=== PATIENT | male | born 1965 | race American Indian/Alaskan Native ===

== ENCOUNTER 2018-08-13 05:10 | Emergency (ER) | payer MEDICARE ==
[2018-08-13] MEDS ORDERED: ATIVAN PO ONE (07:04)
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
[2018-08-13] MEDS ORDERED: WATER FOR INJ (PF) ONE (07:33)
[2018-08-13] MEDS: GEODON IM PRN (07:41)
[2018-08-13 11:10] LABS: Creatine Kinase MB 2.2 ng/mL (0.0-4.0)
[2018-08-13 11:11] LABS: Alanine Aminotransferase 11 units/L (7-56); Albumin 3.9 g/dL (3.9-5); BUN/Creatinine Ratio 28; Blood Urea Nitrogen 25 mg/dL (9-20); Calcium 8.9 mg/dL (8.4-10.2); Hemolysis Index 18
[2018-08-13 11:14] LABS: Bilirubin,Direct < 0.2 mg/dL (0-0.2)
[2018-08-13 12:02] LABS: Basophils # (Auto) 0.1 K/mm3 (0.0-0.1); Basophils % (Auto) 0.6 % (0.0-1.8); Eosinophils # (Auto) 0.1 K/mm3 (0.0-0.4); Eosinophils % (Auto) 1.1 % (0.0-4.3); Hematocrit 39.5 % (35.5-45.6); Hemoglobin 13.7 gm/dl (11.8-15.2); Lymphocytes # (Auto) 2.6 K/mm3 (1.2-5.4); Lymphocytes % (Auto) 30.5 % (13.4-35.0); Mean Corpuscular HGB Conc 35 % (32-34); Mean Corpuscular Volume 83 fl (84-94); Monocytes # (Auto) 0.6 K/mm3 (0.0-0.8); Monocytes % (Auto) 6.7 % (0.0-7.3); Platelet Count 442 K/mm3 (140-440); Red Blood Count 4.75 M/mm3 (3.65-5.03); Red Cell Distribution Width 15.5 % (13.2-15.2)
[2018-08-13] MEDS: GEODON PO SCH ×2 (13:19→21:43)
[2018-08-13 19:03] LABS: Bilirubin,Urine NEG (Negative); Blood,Urine NEG (Negative); Color,Urine Straw (Yellow); Protein,Urine <15 mg/dL mg/dL (Negative); RBC,Urine < 1.0 /HPF (0.0-6.0); Urobilinogen,Urine < 2.0 mg/dL (<2.0)
[2018-08-13 19:11] LABS: Benzodiazepines Screen,Urine PRESUMPTIVE NEGATIVE; Cannabinoid Screen,Urine PRESUMPTIVE NEGATIVE; Cocaine Screen,Urine PRESUMPTIVE NEGATIVE; Methadone Screen,Urine PRESUMPTIVE NEGATIVE; Opiate Screen,Urine PRESUMPTIVE NEGATIVE
[2018-08-13 19:26] LABS: Amphetamine Screen,Urine PRESUMPTIVE NEGATIVE
[2018-08-14] MEDS ORDERED: WATER FOR INJ (PF) ONE (08:04)
[2018-08-14] MEDS: GEODON IM PRN (08:10)
[2018-08-14] MEDS: GEODON PO SCH (11:51)
[2018-08-14] MEDS ORDERED: ATIVAN IM PRN (12:37)
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
[2018-08-15] MEDS ORDERED: HALDOL ONE (01:25)
[2018-08-15] MEDS ORDERED: GEODON IM ONE (01:42)
[2018-08-15] MEDS ORDERED: BENADRYL IM ONE (01:42)
[2018-08-15] MEDS ORDERED: ATIVAN IV ONE (01:43)
[2018-08-15] MEDS ORDERED: BENADRYL ONE (01:43)
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
[2018-08-15] MEDS ORDERED: HALDOL IM ONE (02:43)
[2018-08-15 08:30] VITALS: BP 110/65
[2018-08-15] MEDS ORDERED: WATER FOR INJ (PF) ONE (11:09)
[2018-08-15] MEDS: GEODON PO SCH ×2 (11:13)
[2018-08-15] MEDS: GEODON IM PRN (11:14)
--- NOTE | 2018-08-15 12:35 | Progress Note ---
Subjective - Reason for Consult Consult date: 08/15/18 Reason for consult: Psychiatry Follow-up - Chief Complaint Chief complaint: "Hello" 52 y.o. AA male who presented to the ER for for bizarre behavior. This patient is known to me. Today the patient is calm, but disorganized during the assessment. His answers to questions were not logical. He had to be redirected several times to keep him on topic. Overall, the patient is a poor historian at this time. No gestures of SI/HI's. Mental Status Exam - Vital signs Last Vital Signs Temp 97.8 F 08/15/18 08:29 Pulse 54 L 08/15/18 08:29 Resp 16 08/15/18 08:29 BP 110/65 08/15/18 08:29 Pulse Ox 99 08/15/18 08:29 - Exam Narrative exam: MSE: Appearance: calm Behavior: poor eye contact Speech: pressured speech Mood: "okay" Affect: constricted Thought Process: disorganized, loose associations Thought Content: no gestures of SI/HI's, paranoia, delusional Motor Activity: ambulatory Cognition: A/O x3 Insight: poor Judgment: poor Assessment and Plan Impression: Unspecified Psychosis. Today the patient is calm, but disorganized during the assessment. UDS is negative. Per the staff, the patient maybe legally blind. DDx: Bipolar DO with psychosis, R/O Schizophrenia Recommendation/Plan: Continue 1013 and Geodon 40 mg PO BID for psychosis. Attempted to discuss possible metabolic side effects of Geodon with the patient. Give Geodon PO with food. Dispo: The patient was referred to inpatient psy services. Staffed with Dr Jolly Grove.
== END 2018-08-15 17:11 ==
LOC: ED 05:10 → EEVIPCON 05:10 → ED 08-15 17:11
DX: F23 Brief psychotic disorder (principal); F20.9 Schizophrenia, unspecified
CPT/HCPCS: 36415; 80048; 80076; 80307; 81001; 82550; 82553; 85025; 96372; 96374; 99285; G0480; J1200; J1630; J2060; J3486; 80320

== ENCOUNTER 2018-08-15 12:57 | Inpatient (IN) | payer MEDICARE ==
[2018-08-15] MEDS: GEODON IM PRN (19:30)
[2018-08-15] MEDS ORDERED: WATER FOR INJ Sterile (PF) 10 ML ONE (19:39)
[2018-08-15] MEDS: DESYREL PO SCH (21:44)
[2018-08-15] MEDS: RisperDAL PO SCH (21:44)
[2018-08-16] MEDS ORDERED: ATIVAN PO PRN (01:03)
[2018-08-16] MEDS ORDERED: BENADRYL IM PRN (01:13)
[2018-08-16] MEDS ORDERED: ATIVAN IM PRN (01:15)
[2018-08-16] MEDS ORDERED: WATER FOR INJ Sterile (PF) 10 ML ONE (03:44)
[2018-08-16] MEDS: GEODON IM PRN (04:05)
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
[2018-08-16] MEDS ORDERED: HALDOL IM PRN (08:08)
[2018-08-16] MEDS: RisperDAL PO SCH ×2 (09:17→22:21)
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
[2018-08-16] MEDS: ATIVAN PO PRN (20:37)
[2018-08-16] MEDS: DESYREL PO SCH (22:21)
--- NOTE | 2018-08-17 08:56 | Progress Note ---
Subjective Date of service: 08/17/18 Principal diagnosis: Schizoaffective Disorder Bipolar type Subjective Comment: The patient continues to have grandiose delusions and disorganized thought process He is agitated, hyper-sexual, hyperactive, loud, talkative and disruptive. He is also threatening. He is compliant with medications with no reported or observed side effects. Objective - Criteria for Continued Treatment Criteria for Continued Treatment: Improving Level of Functioning, Understanding Diagnosis and need for Medication, Improving Treatment / Medication Compliance, Confronting Denial of Illness, Stablizing Level of Functioning, Improving Emotional/Socia - Mental Status Mental Status: Oriented x 3 - Objective Observation Participation Level: Moderate Assessment and Plan - Patient Problems (1) Schizoaffective disorder, bipolar type Current Visit: Yes Status: Acute Plan to address problem: Patient will be admitted for inpatient psychiatric evaluation, medication adjustment and close monitoring The patient's behavior, mood, sleep and appetite will be closely monitored. Patient will be enrolled in individual and group therapeutic sessions and encouraged to attend. Patient will be provided with a safe and structured environment. Patient's physical health needs will be addressed by the Hospitalist. Social Assessment will be completed, and the Pedorthist will work with patient and family to ensure a suitable and safe disposition Medication adjustment will be made as clinically indicated. The patient agreed on the treatment plan, understood the risk, benefit, alternative treatment, potential consequence of no treatment, and gave informed consent.
[2018-08-17] MEDS: HABITROL TD SCH (09:05)
[2018-08-17] MEDS: RisperDAL PO SCH ×2 (09:06→22:00)
[2018-08-17] MEDS ORDERED: RisperDAL PO ONE (10:00)
[2018-08-17] MEDS: MELATONIN PO SCH (17:15)
[2018-08-17] MEDS: DESYREL PO PRN (21:35)
[2018-08-18] MEDS: RisperDAL PO SCH ×2 (09:17→22:00)
[2018-08-18] MEDS: HABITROL TD SCH (09:17)
--- NOTE | 2018-08-18 15:19 | Progress Note ---
Subjective Date of service: 08/18/18 Principal diagnosis: Schizoaffective Disorder Bipolar type Subjective Comment: The patient continues to have grandiose delusions and disorganized thought process He is agitated, hyper-sexual, hyperactive, loud, talkative and disruptive. He is also threatening. He is compliant with medications with no reported or observed side effects. Objective - Criteria for Continued Treatment Criteria for Continued Treatment: Improving Level of Functioning, Improving Treatment / Medication Compliance, Confronting Denial of Illness, Stablizing Level of Functioning, Improving Emotional/Socia - Mental Status Mental Status: Oriented x 3 - Objective Observation Participation Level: Moderate Reason(s) For Not Participating: Behaviors Assessment and Plan - Patient Problems (1) Schizoaffective disorder, bipolar type Current Visit: Yes Status: Acute Plan to address problem: Patient will be admitted for inpatient psychiatric evaluation, medication adjustment and close monitoring The patient's behavior, mood, sleep and appetite will be closely monitored. Patient will be enrolled in individual and group therapeutic sessions and encouraged to attend. Patient will be provided with a safe and structured environment. Patient's physical health needs will be addressed by the Hospitalist. Social Assessment will be completed, and the Lap Cutter will work with pa tient and family to ensure a suitable and safe disposition Medication adjustment will be made as clinically indicated. Depakote ER increased to 1000mg qhs. Check Valproic Acid level on 4/16 am The patient agreed on the treatment plan, understood the risk, benefit, alternative treatment, potential consequence of no treatment, and gave informed consent.
[2018-08-18] MEDS: MELATONIN PO SCH (17:34)
[2018-08-19] MEDS: HABITROL TD SCH (10:39)
[2018-08-19] MEDS: RisperDAL PO SCH ×2 (10:39→10:42)
--- NOTE | 2018-08-19 18:09 | Progress Note ---
Subjective Principal diagnosis: Schizoaffective Disorder Bipolar type Subjective Comment: Mr. Garcia is a 52-year-old male with schizoaffective disorder admitted for acute agitation, hallucinations, and prominent delusions. He continues to have very prominent delusions stating that he has been on mission from his ancestors and that he is not asked her not and had to go to [employer] to do work. He continues to have grandiosity and states that he has a "[employer]." He also continues to be hypersexual and masturbates frequently in his room. Mr. Garcia states that his sleep was good he states that he is doing okay with his medications, but nursing states that he did not take his a.m. dose of Risperdal. He reports he was irritated at the time, but agreeable to taking 4 mg of Risperdal by mouth daily at bedtime. He denies side effects. He denies SI and HI. He reports sleep is good per unit staff Mr. Garcia has continued to be easily agitated and aggressive but was able to employ coping so by asking to leave the group earlier today when he became angered. Last Vital Signs Temp 97.7 F 08/18/18 09:51 Pulse 107 H 08/18/18 09:51 Resp 18 08/17/18 20:00 BP 91/54 08/18/18 09:51 Pulse Ox 97 08/18/18 09:51 Objective - Criteria for Continued Treatment Criteria for Continued Treatment: Improving Level of Functioning, Understanding Diagnosis and need for Medication, Improving Treatment / Medication Compliance, Confronting Denial of Illness, Stablizing Level of Functioning, Decreasing Frequency of Hospitalization - Mental Status Mental Status: Oriented x [address] - Objective Observation Participation Level: Moderate Reason(s) For Not Participating: Behaviors Assessment and Plan - Patient Problems (1) Schizoaffective disorder, bipolar type Current Visit: Yes Status: Acute Plan to address problem: Change Risperdal to 4 mg by mouth daily at bedtime and continue Depakote ER 1000 mg by mouth daily at bedtime
[2018-08-19] MEDS: ATIVAN PO PRN (19:45)
[2018-08-19] MEDS ORDERED: RisperDAL PO SCH (22:00)
[2018-08-20] MEDS: MELATONIN PO SCH ×2 (01:04→18:17)
[2018-08-20] MEDS: HABITROL TD SCH (10:29)
[2018-08-20] MEDS: ATIVAN PO PRN (16:11)
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
[2018-08-20] MEDS: RisperDAL PO SCH (22:14)
[2018-08-20] MEDS: DESYREL PO PRN (22:15)
[2018-08-21] MEDS: ATIVAN PO PRN (03:45)
[2018-08-21] MEDS: HABITROL TD SCH (10:00)
[2018-08-21] MEDS ORDERED: GEODON PO PRN (11:48)
[2018-08-21] MEDS ORDERED: GEODON IM PRN (11:51)
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
[2018-08-21] MEDS: MELATONIN PO SCH (19:12)
[2018-08-21] MEDS: RisperDAL PO SCH (22:06)
[2018-08-21] MEDS: DESYREL PO PRN (22:07)
[2018-08-22] MEDS: HABITROL TD SCH (12:19)
[2018-08-22] MEDS ORDERED: GEODON PO PRN (13:27)
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
[2018-08-22] MEDS: MELATONIN PO SCH (18:02)
[2018-08-22] MEDS: GEODON PO SCH (18:02)
[2018-08-22] MEDS: RisperDAL PO SCH (23:42)
[2018-08-22] MEDS: DESYREL PO PRN (23:43)
[2018-08-23 16:18] LABS: Alanine Aminotransferase 10 units/L (7-56); Albumin 4.2 g/dL (3.9-5); BUN/Creatinine Ratio 18; Blood Urea Nitrogen 20 mg/dL (9-20); Calcium 9.5 mg/dL (8.4-10.2); Hemolysis Index 9
[2018-08-23] MEDS: MELATONIN PO SCH (17:53)
[2018-08-23] MEDS: GEODON PO SCH (17:54)
[2018-08-23] MEDS: HABITROL TD SCH (17:55)
--- NOTE | 2018-08-23 19:53 | Progress Note ---
Subjective Date of service: 08/23/18 Principal diagnosis: Schizoaffective Disorder Bipolar type Subjective Comment: The patient continues to exhibit grandiose delusions and disorganized thinking, stating "I want the ozone level to be right. I got the harvest again." He continues to be sexually inappropriate and requested "female services." He refused his initial lab draw, but later consented. He denies AVH and SI. Per staff report, he is taking meds and slept last night. No PRN meds required in the last 24 hours. Objective - Criteria for Continued Treatment Criteria for Continued Treatment: Improving Level of Functioning, Understanding Diagnosis and need for Medication, Improving Treatment / Medication Compliance, Confronting Denial of Illness, Stablizing Level of Functioning, Improving Emotional/Socia, Decreasing Frequency of Hospitalization - Mental Status Mental Status: Oriented x 3 - Objective Observation Participation Level: Moderate Reason(s) For Not Participating: Behaviors Assessment and Plan - Patient Problems (1) Schizoaffective disorder, bipolar type Current Visit: Yes Status: Acute Plan to address problem: Continue Risperdal 6mg po Qhs and Depakote 1500mg po Qhs. Depakote level was approximately 6 hours prior to a true trough. Will not increase Depakote, given that the level was in the therapeutic window. Continue Geodon 80mg daily with dinner. ECG not completed, will follow up. (2) Aggression Current Visit: Yes Status: Acute Plan to address problem: Improving. Continue prn meds.
[2018-08-23] MEDS: RisperDAL PO SCH (21:43)
[2018-08-24] MEDS: HABITROL TD SCH (09:56)
[2018-08-24] MEDS ORDERED: WATER FOR INJ Sterile (PF) 10 ML ONE (14:01)
[2018-08-24] MEDS: MELATONIN PO SCH (20:27)
[2018-08-24] MEDS: GEODON PO SCH (20:27)
[2018-08-24] MEDS: DESYREL PO PRN (21:11)
[2018-08-24] MEDS: RisperDAL PO SCH (21:11)
--- NOTE | 2018-08-24 21:36 | Progress Note ---
Subjective Date of service: 08/24/18 Principal diagnosis: Schizoaffective Disorder Bipolar type Subjective Comment: Mr. Garcia continues to have grandiose and paranoid delusions. Today he continues to believe that someone on the unit is having sex with his which has caused him significant significant agitation. He required when necessary Geodon this afternoon in order to calm him down. He alsonotes frustration with not being able to access his belongings. He denies suicidal ideation but comments that he is going to kill someone if he does not see his . He denies side effects from medication. Objective - Criteria for Continued Treatment Criteria for Continued Treatment: Improving Level of Functioning, Understanding Diagnosis and need for Medication, Improving Treatment / Medication Compliance, Confronting Denial of Illness, Stablizing Level of Functioning, Decreasing Frequency of Hospitalization - Mental Status Mental Status: Alert - Objective Observation Participation Level: Moderate Reason(s) For Not Participating: Behaviors Assessment and Plan - Patient Problems (1) Schizoaffective disorder, bipolar type Current Visit: Yes Status: Acute Plan to address problem: Continue Risperdal 6mg po Qhs and Depakote 1500mg po Qhs. ECG ordered to check QTc prolongation. Will increase Geodon to 160mg po Qday with dinner. (2) Aggression Current Visit: Yes Status: Acute Plan to address problem: Continue prn medication. Continue to try to redirect and improve coping skills in group.
[2018-08-24] MEDS ORDERED: GEODON PO ONE (21:58)
[2018-08-25] MEDS: HABITROL TD SCH (10:04)
[2018-08-25] MEDS: MELATONIN PO SCH (17:08)
[2018-08-25] MEDS: GEODON PO SCH (17:19)
--- NOTE | 2018-08-25 18:43 | Progress Note ---
Subjective Date of service: 08/25/18 Principal diagnosis: Schizoaffective Disorder Bipolar type Subjective Comment: Mr. Garcia continues to have grandiose and perky persecutory delusions. He states he continues thinking about his and is worried about her. He also notes that he would like to report some crimes from [facility] giving examples of opera [employer] and [employer] [place] up prostituting themselves there. He continues to be hypersexual and sexually inappropriate with staff. He notes that he did have a good family visit and that his medication is doing well. He denies auditory and visual hallucinations, denies suicidal and homicidal ideations, and denies side effects from medications. Objective - Criteria for Continued Treatment Criteria for Continued Treatment: Improving Level of Functioning, Understanding Diagnosis and need for Medication, Improving Treatment / Medication Compliance, Confronting Denial of Illness, Decreasing Frequency of Hospitalization - Mental Status Mental Status: Oriented x 3 - Objective Observation Participation Level: Moderate Assessment and Plan - Patient Problems (1) Schizoaffective disorder, bipolar type Current Visit: Yes Status: Acute Plan to address problem: Continue Risperdal 6mg po Qhs and Depakote 1500mg po Qhs. Continue Geodon 160mg po Qday with dinner. (2) Aggression Current Visit: Yes Status: Acute Plan to address problem: Improving; continue as needed medications
[2018-08-25] MEDS: DESYREL PO PRN (21:31)
[2018-08-25] MEDS: RisperDAL PO SCH (21:32)
--- NOTE | 2018-08-26 09:38 | Progress Note ---
Subjective Date of service: 08/26/18 Principal diagnosis: Schizoaffective Disorder Bipolar type Subjective Comment: The patient is improving. He is calmer and easier to redirect bu still has grandiose delusions and is hyper-sexual, but not disorganized, hyperactive or disruptive. He is compliant with medications with no reported or observed side effects. Objective - Criteria for Continued Treatment Criteria for Continued Treatment: Improving Level of Functioning, Understanding Diagnosis and need for Medication, Improving Treatment / Medication Compliance, Confronting Denial of Illness, Stablizing Level of Functioning, Improving Emotional/Socia - Mental Status Mental Status: Oriented x 3 - Objective Observation Participation Level: Moderate Assessment and Plan - Patient Problems (1) Schizoaffective disorder, bipolar type Current Visit: Yes Status: Acute Plan to address problem: Patient will be admitted for inpatient psychiatric evaluation, medication adjustment and close monitoring The patient's behavior, mood, sleep and appetite will be closely monitored. Patient will be enrolled in individual and group therapeutic sessions and encouraged to attend. Patient will be provided with a safe and structured environment. Patient's physical health needs will be addressed by the Hospitalist. Social Assessment will be completed, and the Tying Machine Operator Lumber will work with patient and family to ensure a suitable and safe disposition Medication adjustment will be made as clinically indicated. The patient agreed on the treatment plan, understood the risk, benefit, alternative treatment, potential consequence of no treatment, and gave informed consent.
[2018-08-26] MEDS: HABITROL TD SCH (10:37)
[2018-08-26] MEDS: GEODON PO SCH (17:40)
[2018-08-26] MEDS: MELATONIN PO SCH (19:36)
[2018-08-26] MEDS: RisperDAL PO SCH (21:07)
[2018-08-26] MEDS: DESYREL PO PRN (21:08)
[2018-08-26] MEDS ORDERED: RisperDAL PO SCH (22:00)
[2018-08-27] MEDS: HABITROL TD SCH (09:38)
[2018-08-27] MEDS: RisperDAL PO SCH ×2 (09:46→21:08)
--- NOTE | 2018-08-27 16:37 | Progress Note ---
Subjective Date of service: 08/27/18 Principal diagnosis: Schizoaffective Disorder Bipolar type Subjective Comment: Patient appears to be at his baseline. He is calm and easy to redirect. He continues to have grandiose delusions and is hyper-sexual, but not disorganized, hyperactive or disruptive. He is compliant with medications with no reported or observed side effects. No SI/HI/AVH/Paranoia Objective - Criteria for Continued Treatment Criteria for Continued Treatment: Improving Level of Functioning, Reducing Isolative Behaviors, Understanding Diagnosis and need for Medication, Improving Treatment / Medication Compliance, Confronting Denial of Illness, Stablizing Level of Functioning, Improving Emotional/Socia - Mental Status Mental Status: Oriented x 3 - Objective Observation Participation Level: Moderate Assessment and Plan - Patient Problems (1) Schizoaffective disorder, bipolar type Current Visit: Yes Status: Acute Plan to address problem: Patient will be admitted for inpatient psychiatric evaluation, medication adjustment and close monitoring The patient's behavior, mood, sleep and appetite will be closely monitored. Patient will be enrolled in individual and group therapeutic sessions and encouraged to attend. Patient will be provided with a safe and structured environment. Patient's physical health needs will be addressed by the Hospitalist. Social Assessment will be completed, and the Floor Technician will work with patient and family to ensure a suitable and safe disposition Medication adjustment will be made as clinically indicated. The patient agreed on the treatment plan, understood the risk, benefit, alternative treatment, potential consequence of no treatment, and gave informed consent.
[2018-08-27] MEDS: MELATONIN PO SCH (17:12)
[2018-08-28] MEDS: RisperDAL PO SCH ×2 (09:26→21:14)
--- NOTE | 2018-08-28 11:01 | Progress Note ---
Subjective Date of service: 08/28/18 Principal diagnosis: Schizoaffective Disorder Bipolar type Subjective Comment: Patient appears to be at his baseline. He is calm and easy to redirect. He continues to have grandiose delusions but not disorganized, hyperactive or disruptive. He is compliant with medications with no reported or observed side effects. No SI/HI/AVH/Paranoia Objective - Criteria for Continued Treatment Criteria for Continued Treatment: Improving Level of Functioning, Improving Treatment / Medication Compliance - Mental Status Mental Status: Oriented x 3 - Objective Observation Participation Level: Moderate Assessment and Plan - Patient Problems (1) Schizoaffective disorder, bipolar type Current Visit: Yes Status: Acute Plan to address problem: Patient will be admitted for inpatient psychiatric evaluation, medication adjustment and close monitoring The patient's behavior, mood, sleep and appetite will be closely monitored. Patient will be enrolled in individual and group therapeutic sessions and encouraged to attend. Patient will be provided with a safe and structured environment. Patient's physical health needs will be addressed by the Hospitalist. Social Assessment will be completed, and the Rug Receiving Clerk will work with patient and family to ensure a suitable and safe disposition Medication adjustment will be made as clinically indicated. The patient agreed on the treatment plan, understood the risk, benefit, alternative treatment, potential consequence of no treatment, and gave informed consent.
[2018-08-28] MEDS: HABITROL TD SCH (11:20)
[2018-08-28] MEDS: BENADRYL PO PRN (17:40)
[2018-08-28] MEDS: MELATONIN PO SCH (21:13)
[2018-08-29] MEDS: RisperDAL PO SCH ×2 (09:29→21:15)
[2018-08-29] MEDS: HABITROL TD SCH (09:31)
[2018-08-29] MEDS: MELATONIN PO SCH (17:35)
[2018-08-29] MEDS: DESYREL PO PRN (21:15)
--- NOTE | 2018-08-30 00:37 | Progress Note ---
Subjective Date of service: 08/29/18 Principal diagnosis: Schizoaffective Disorder Bipolar type Subjective Comment: Patient appears to be at his baseline. He is calm and easy to redirect. He continues to have grandiose delusions but not disorganized, hyperactive or disruptive. He is compliant with medications with no reported or observed side effects. No SI/HI/AVH/Paranoia. Will plan to discharge in am tomorrow. Objective - Criteria for Continued Treatment Criteria for Continued Treatment: Improving Level of Functioning, Stablizing Level of Functioning - Mental Status Mental Status: Oriented x 3 - Objective Observation Participation Level: Moderate Assessment and Plan - Patient Problems (1) Schizoaffective disorder, bipolar type Current Visit: Yes Status: Acute Plan to address problem: Patient will be admitted for inpatient psychiatric evaluation, medication adjustment and close monitoring The patient's behavior, mood, sleep and appetite will be closely monitored. Patient will be enrolled in individual and group therapeutic sessions and encouraged to attend. Patient will be provided with a safe and structured environment. Patient's physical health needs will be addressed by the Hospitalist. Social Assessment will be completed, and the Group Supervisor Yard will work with patient and family to ensure a suitable and safe disposition Medication adjustment will be made as clinically indicated. The patient agreed on the treatment plan, understood the risk, benefit, alternative treatment, potential consequence of no treatment, and gave informed consent.
[2018-08-30] MEDS: BENADRYL PO PRN (02:36)
--- NOTE | 2018-08-30 08:37 | Discharge Summary ---
Providers - Providers Date of Admission: 08/15/18 17:13 Date of discharge: 08/30/18 Attending physician: MARTINEZ SANCHEZ MD Primary care physician: HEARTH FEEDER Hospitalization Reason for admission: Delusional, disorganized, hypersexual, hyperactive, talkative & aggressive Admitting Diagnosis: F25.0 - SCHIZOAFFECTIVE DISORDER, BIPOLAR TYPE Condition: Fair Hospital course: The patient was provided inpatient psychiatric treatment with safe and supportive environment, group therapy, individual counseling, psychiatric medication, medication adjustment, adverse effect monitor, medical evaluation, medical treatment, social service assessment, family/social support meeting, placement assessment and psycho-education. The patients mood, anxiety, thoughts, stress management skill, cognition, impulse/anger control, motivation, understanding of disease, compliance to treatment and appreciation on family/social support are improved and stabilized. At the time of discharge, the patient had no suicidal ideas, no homicidal ideas, no aggressive thoughts, no endangering behavior and no debilitating adverse effects. The patient agreed on the treatment plan, understood the risk, benefit, alternative treatment, potential consequence of no treatment, and gave informed consent. The patient was advised to be compliant with medications, not to use drugs and not to drink alcohol. The patient understands that if suicidal ideas, homicidal ideas, or any endangering thoughts arise, the patient should immediately seek for emergent assistance including but not limited to crisis hot line and emergency room. Follow up with out-patient Psychiatrist and PCP within 14 - 21 days of discharge. Disposition: - TO HOME OR SELFCARE Allergies/Adverse Reactions: Allergies No Known Allergies Allergy (Verified 05/15/18 09:16) Vital Signs: Last Vital Signs Temp 97.4 F L 08/29/18 19:48 Pulse 76 08/29/18 19:48 Resp 18 08/29/18 19:48 BP 148/82 08/29/18 19:48 Pulse Ox 100 08/29/18 19:48 Last Lab: Laboratory Last Values Sodium 142 mmol/L (137-145) 08/23/18 15:38 Potassium 4.4 mmol/L (3.6-5.0) 08/23/18 15:38 Chloride 100.4 mmol/L (98-107) 08/23/18 15:38 Carbon Dioxide 31 mmol/L (22-30) H 08/23/18 15:38 Anion Gap 15 mmol/L 08/23/18 15:38 BUN 20 mg/dL (9-20) 08/23/18 15:38 Creatinine 1.1 mg/dL (0.8-1.5) 08/23/18 15:38 Estimated GFR > 60 ml/min 08/23/18 15:38 BUN/Creatinine Ratio 18 % 08/23/18 15:38 Glucose 89 mg/dL (75-100) 08/23/18 15:38 Calcium 9.5 mg/dL (8.4-10.2) 08/23/18 15:38 Total Bilirubin < 0.20 mg/dL (0.1-1.2) 08/23/18 15:38 AST 14 units/L (5-40) 08/23/18 15:38 ALT 10 units/L (7-56) 08/23/18 15:38 Alkaline Phosphatase 61 units/L (35-129) 08/23/18 15:38 Total Protein 7.5 g/dL (6.3-8.2) 08/23/18 15:38 Albumin 4.2 g/dL (3.9-5) 08/23/18 15:38 Albumin/Globulin Ratio 1.3 % 08/23/18 15:38 Valproic Acid 94.3 ug/mL (50-100) 08/26/18 14:31 - Discharge Diagnoses (1) Schizoaffective disorder, bipolar type Status: Acute Core Measure Documentation - Palliative Care Palliative Care/ Comfort Measures: Not Applicable - Core Measures Any of the following diagnoses?: none - VTE Discharge Requirements Deep Vein Thrombosis/Pulmonary Embolism Present on Admission: No Has pt received <5 days of overlap therapy or INR<2.0: No Anticoagulant overlap therapy prescribed at discharge: No Contraindication No Overlap Therapy order at DC: Not Indicated Exam - Constitutional Vitals: Temp Pulse Resp BP Pulse Ox 97.4 F L 76 18 148/82 100 08/29/18 19:48 08/29/18 19:48 08/29/18 19:48 08/29/18 19:48 08/29/18 19:48 General appearance: Present: no acute distress, well-nourished - EENT ENT: hearing intact - Neck Neck: Present: supple - Respiratory Respiratory effort: normal Plan Activity: advance as tolerated Weight Bearing Status: Weight Bear as Tolerated Diet: regular Follow up with: PRIMARY CARE, [Primary Care Provider] - 7 Days Prescriptions: Divalproex ER [Depakote ER] 1,500 mg PO QHS #90 tablet traZODone [Desyrel] 50 mg PO QHS PRN #30 tablet PRN Reason: insomnia diphenhydrAMINE [Benadryl CAP] 25 mg PO Q4H PRN #60 capsule PRN Reason: Agitation Nicotine [Habitrol] 21 mg TD QDAY #30 patch Melatonin 5 mg PO QPM #30 tablet risperiDONE [RisperDAL] 4 mg PO BID #240 tablet
[2018-08-30] MEDS: RisperDAL PO SCH ×2 (09:22→21:07)
[2018-08-30] MEDS: HABITROL TD SCH (17:21)
[2018-08-30] MEDS: MELATONIN PO SCH (17:25)
[2018-08-30] MEDS: DESYREL PO PRN (21:08)
[2018-08-31 09:21] VITALS: BP 108/68
[2018-08-31] MEDS: RisperDAL PO SCH (09:22)
[2018-08-31] MEDS: HABITROL TD SCH (10:00)
--- NOTE | 2018-08-31 10:45 | Progress Note ---
Subjective Date of service: 08/31/18 Principal diagnosis: Schizoaffective Disorder Bipolar type Subjective Comment: Patient appears to be at his baseline. He is calm and easy to redirect. He continues to have grandiose delusions but not disorganized, hyperactive or disruptive. He is compliant with medications with no reported or observed side effects. No SI/HI/AVH/Paranoia. Will discharge today Objective - Mental Status Mental Status: Oriented x 3 - Objective Observation Participation Level: Moderate Assessment and Plan - Patient Problems (1) Schizoaffective disorder, bipolar type Status: Acute Plan to address problem: Discharge home today
== END 2018-08-31 10:59 | disposition home or self-care (01) | DRG 885 ==
LOC: UNDOADMIN 12:57 → 3A 12:57 → UNDOADMIN 15:21 → 5A 15:21
PROVIDERS: ADMIT Psychiatry & Neurology Psychiatry; ATTEND Psychiatry & Neurology Psychiatry
DX: F25.0 Schizoaffective disorder, bipolar type (principal); H54.8 Legal blindness, as defined in USA; F17.210 Nicotine dependence, cigarettes, uncomplicated; Z79.899 Other long term (current) drug therapy; Z71.6 Tobacco abuse counseling
CPT/HCPCS: 36415; 80048; 80053; 80076; 80164; 80307; 80320; 81001; 82550; 82553; 85025; 93005; 93010; 96372; 96374; G0378; G0480; J1200; J1630; J2060; J3486

== ENCOUNTER 2018-12-31 15:18 | Emergency (ER) | payer MEDICARE ==
[2018-12-31] MEDS ORDERED: ATIVAN ONE (15:37)
[2018-12-31] MEDS ORDERED: WATER FOR INJ Sterile (PF) 10 ML ONE (15:38)
[2018-12-31] MEDS ORDERED: GEODON IM ONE ×2 (15:38)
[2018-12-31] MEDS ORDERED: ATIVAN IM ONE (15:38)
[2018-12-31 16:12] LABS: Basophils % (Auto) 0.6 % (0.0-1.8); Eosinophils % (Auto) 0.7 % (0.0-4.3); Hematocrit 38.1 % (35.5-45.6); Hemoglobin 13.2 gm/dl (11.8-15.2); Lymphocytes # (Auto) 1.9 K/mm3 (1.2-5.4); Lymphocytes % (Auto) 34.5 % (13.4-35.0); Mean Corpuscular HGB Conc 35 % (32-34); Mean Corpuscular Volume 83 fl (84-94); Monocytes # (Auto) 0.5 K/mm3 (0.0-0.8); Monocytes % (Auto) 8.6 % (0.0-7.3); Platelet Count 372 K/mm3 (140-440); Red Blood Count 4.62 M/mm3 (3.65-5.03); Red Cell Distribution Width 17.7 % (13.2-15.2)
--- NOTE | 2018-12-31 16:26 | Emergency Department Report ---
ED Psych HPI - General Chief Complaint: Psych Stated Complaint: SCHIZOPHRENIA Time Seen by Provider: 12/31/18 15:38 Source: EMS Mode of arrival: Stretcher - History of Present Illness Initial Comments: 33-year-old male is transported here via EMS for erratic behavior. The patient is delusional with loose associations and ideas of reference. He states his problem is that "my medicine has worn off". Patient states that he was on monthly and vague but has not had this for some time. He has a history of schizoaffective disorder/bipolar. He was agitated on arrival and required chemical sedation per nursing staff. However on my encounter he was cooperative. MD Complaint: other (acute psychosis) -: unknown Associated Psychiatric Symptoms: racing thoughts, delusions History of same: Yes Quality: constant Improves With: none Worsens With: none Context: not taking psychiatric Associated Symptoms: denies other symptoms If Self Harm: other - Related Data Previous Rx's Medication Instructions Recorded Last Taken Type Divalproex ER [Depakote ER] 1,500 mg PO QHS #90 tablet 08/30/18 Unknown Rx Melatonin [Melatonin 5MG TAB] 5 mg PO QPM #30 tablet 08/30/18 Unknown Rx Nicotine [Habitrol] 21 mg TD QDAY #30 patch 08/30/18 Unknown Rx diphenhydrAMINE [Benadryl CAP] 25 mg PO Q4H PRN #60 capsule 08/30/18 Unknown Rx risperiDONE [RisperDAL] 4 mg PO BID #240 tablet 08/30/18 Unknown Rx traZODone [Desyrel] 50 mg PO QHS PRN #30 tablet 08/30/18 Unknown Rx Allergies Allergy/AdvReac Type Severity Reaction Status Date / Time No Known Allergies Allergy Verified 12/31/18 15:53 ED Review of Systems ROS: Stated complaint: SCHIZOPHRENIA Other details as noted in HPI Constitutional: denies: chills, fever Eyes: denies: eye pain, eye discharge, vision change ENT: denies: ear pain, throat pain Respiratory: denies: cough, shortness of breath, wheezing Cardiovascular: denies: chest pain, palpitations Endocrine: no symptoms reported Gastrointestinal: denies: abdominal pain, nausea, diarrhea Genitourinary: denies: urgency, dysuria Musculoskeletal: denies: back pain, joint swelling, arthralgia Skin: denies: rash, lesions Neurological: denies: headache, weakness, paresthesias Psychiatric: as per HPI, other. denies: anxiety, depression Hematological/Lymphatic: denies: easy bleeding, easy bruising ED Past Medical Hx - Past Medical History Previous Medical History?: Yes Hx Hypertension: Yes Hx Congestive Heart Failure: No Hx Diabetes: No Hx Renal Disease: No Hx Arthritis: No Hx Seizures: Yes Hx Psychiatric Treatment: Yes (schizophrenia) Hx Asthma: No Hx COPD: No Hx Dementia: No - Surgical History Past Surgical History?: No Hx Cholecystectomy: No Hx Appendectomy: No - Social History Smoking Status: Never Smoker - Medications Home Medications: Home Medications Medication Instructions Recorded Confirmed Last Taken Type Divalproex ER [Depakote ER] 1,500 mg PO QHS #90 tablet 08/30/18 Unknown Rx Melatonin [Melatonin 5MG TAB] 5 mg PO QPM #30 tablet 08/30/18 Unknown Rx Nicotine [Habitrol] 21 mg TD QDAY #30 patch 08/30/18 Unknown Rx diphenhydrAMINE [Benadryl CAP] 25 mg PO Q4H PRN #60 capsule 08/30/18 Unknown Rx risperiDONE [RisperDAL] 4 mg PO BID #240 tablet 08/30/18 Unknown Rx traZODone [Desyrel] 50 mg PO QHS PRN #30 tablet 08/30/18 Unknown Rx ED Physical Exam - General Limitations: Other General appearance: alert, in no apparent distress - Head Head exam: Present: atraumatic, normocephalic - Eye Eye exam: Present: normal appearance - ENT ENT exam: Present: mucous membranes moist - Neck Neck exam: Present: normal inspection - Respiratory Respiratory exam: Present: normal lung sounds bilaterally. Absent: respiratory distress - Cardiovascular Cardiovascular Exam: Present: regular rate, normal rhythm. Absent: systolic murmur, diastolic murmur, rubs, gallop - GI/Abdominal GI/Abdominal exam: Present: soft, normal bowel sounds. Absent: distended, tenderness - Rectal Rectal exam: Present: deferred - Extremities Exam Extremities exam: Present: normal inspection - Back Exam Back exam: Present: normal inspection - Neurological Exam Neurological exam: Present: alert, oriented X3, CN II-XII intact, normal gait. Absent: motor sensory deficit - Psychiatric Psychiatric exam: Present: agitated, flat affect - Skin Skin exam: Present: warm, dry, intact, normal color. Absent: rash ED Course Vital Signs 12/31/18 15:25 Pulse Rate 120 H Respiratory 18 Rate Blood Pressure 118/76 [Left] O2 Sat by Pulse 99 Oximetry - Reevaluation(s) Reevaluation #1: She is medically clear for psychiatric placement. His medications were restarted. 12/31/18 17:17 ED Medical Decision Making - Lab Data Result diagrams: 12/31/18 15:58 12/31/18 15:58 Laboratory Results - last 24 hr 12/31/18 15:58 WBC 5.5 RBC 4.62 Hgb 13.2 Hct 38.1 MCV 83 L MCH 29 MCHC 35 H RDW 17.7 H Plt Count 372 Lymph % (Auto) 34.5 [place] % (Auto) 8.6 H Eos % (Auto) 0.7 Baso % (Auto) 0.6 Lymph # 1.9 [place] # 0.5 Eos # 0.0 Baso # 0.0 Seg Neutrophils % 55.6 Seg Neutrophils # 3.1 Laboratory Results - last 24 hr 12/31/18 12/31/18 12/31/18 15:58 15:58 15:58 WBC 5.5 RBC 4.62 Hgb 13.2 Hct 38.1 MCV 83 L MCH 29 MCHC 35 H RDW 17.7 H Plt Count 372 Lymph % (Auto) 34.5 [place] % (Auto) 8.6 H Eos % (Auto) 0.7 Baso % (Auto) 0.6 Lymph # 1.9 [place] # 0.5 Eos # 0.0 Baso # 0.0 Seg Neutrophils % 55.6 Seg Neutrophils # 3.1 Sodium 141 Potassium 3.8 Chloride 101.2 Carbon Dioxide 26 Anion Gap 18 BUN 33 H Creatinine 1.5 Estimated GFR 59 BUN/Creatinine Ratio 22 Glucose 101 H Calcium 9.4 Total Bilirubin Direct Bilirubin Indirect Bilirubin AST ALT Alkaline Phosphatase Total Creatine Kinase CK-MB (CK-2) CK-MB (CK-2) Rel Index Total Protein Albumin Albumin/Globulin Ratio TSH 4.400 H Plasma/Serum Alcohol 12/31/18 12/31/18 12/31/18 15:58 15:58 15:58 WBC RBC Hgb Hct MCV MCH MCHC RDW Plt Count Lymph % (Auto) [place] % (Auto) Eos % (Auto) Baso % (Auto) Lymph # [place] # Eos # Baso # Seg Neutrophils % Seg Neutrophils # Sodium Potassium Chloride Carbon Dioxide Anion Gap BUN Creatinine Estimated GFR BUN/Creatinine Ratio Glucose Calcium Total Bilirubin 0.50 Direct Bilirubin < 0.2 Indirect Bilirubin 0.3 AST 14 ALT 26 Alkaline Phosphatase 88 Total Creatine Kinase 73 CK-MB (CK-2) 1.1 CK-MB (CK-2) Rel Index 1.5 Total Protein 8.3 H Albumin 3.9 Albumin/Globulin Ratio 0.9 TSH Plasma/Serum Alcohol < 0.01 < 0.01 Critical care attestation.: If time is entered above; I have spent that time in minutes in the direct care of this critically ill patient, excluding procedure time. ED Disposition Clinical Impression: Schizoaffective disorder, bipolar type, Acute psychosis Disposition: DC/TX-65 PSY HOSP/PSY UNIT Is pt being admited?: No Does the pt Need Aspirin: No Condition: Stable Referrals: DELFINO BAKER MD [Primary Care Provider] - 3-5 Days Time of Disposition: 17:17
[2018-12-31 16:32] LABS: Creatine Kinase MB 1.1 ng/mL (0.0-4.0)
[2018-12-31 16:33] LABS: Calcium 9.4 mg/dL (8.4-10.2)
[2018-12-31 16:34] LABS: Alanine Aminotransferase 26 units/L (7-56); Albumin 3.9 g/dL (3.9-5)
[2018-12-31 16:35] LABS: Bilirubin,Direct < 0.2 mg/dL (0-0.2)
[2018-12-31] MEDS ORDERED: TYLENOL PO PRN (17:13)
[2018-12-31] MEDS ORDERED: MILK OF MAGNESIA PO PRN (17:13)
[2018-12-31] MEDS ORDERED: GEODON IM PRN (17:13)
[2018-12-31] MEDS ORDERED: ALUM-MAG HYDROX-SIMETH 200-200-20MG/5ML PO PRN (17:13)
[2018-12-31] MEDS: RisperDAL PO SCH (22:12)
[2018-12-31 23:19] LABS: Bilirubin,Urine NEG (Negative); Blood,Urine NEG (Negative); Color,Urine Yellow (Yellow); Mucus,Urine 2+ /HPF; Protein,Urine <15 mg/dL mg/dL (Negative); Urobilinogen,Urine < 2.0 mg/dL (<2.0)
[2018-12-31 23:23] LABS: Amphetamine Screen,Urine PRESUMPTIVE NEGATIVE; Benzodiazepines Screen,Urine PRESUMPTIVE NEGATIVE; Cocaine Screen,Urine PRESUMPTIVE NEGATIVE; Methadone Screen,Urine PRESUMPTIVE NEGATIVE; Opiate Screen,Urine PRESUMPTIVE NEGATIVE
[2018-12-31 23:57] LABS: Cannabinoid Screen,Urine PRESUMPTIVE POSITIVE
--- NOTE | 2019-01-01 10:31 | Consultation ---
History of Present Illness - Reason for Consult Consult date: 01/01/19 Reason for consult: Mental Health Evaluation Requesting physician: MAXIMO QUIÑONES - Chief Complaint Chief complaint: "My is here with me" - History of Present Psychiatric Illness 53 y.o. AA male who presented to the [facility]. This patient is known to me. Today the patient was calm, but somewhat disorganized. He was asked several questions about what happened at his jail, most of his answers were not logical. He stated that he believe that his is with him currently in the ER. The patient's vision is impaired, but he appear to be preoccupied. He was able to state that he take Risperdal and Depakote, but isn't sure of the dose for either medication. He denies SI/HI's and AVH's. No indications of side effects from his medications. Medications and Allergies Allergies Allergy/AdvReac Type Severity Reaction Status Date / Time No Known Allergies Allergy Verified 12/31/18 15:53 Home Medications Medication Instructions Recorded Confirmed Last Taken Type Divalproex ER [Depakote ER] 1,500 mg PO QHS #90 tablet 08/30/18 Unknown Rx Melatonin [Melatonin 5MG TAB] 5 mg PO QPM #30 tablet 08/30/18 Unknown Rx Nicotine [Habitrol] 21 mg TD QDAY #30 patch 08/30/18 Unknown Rx diphenhydrAMINE [Benadryl CAP] 25 mg PO Q4H PRN #60 capsule 08/30/18 Unknown Rx risperiDONE [RisperDAL] 4 mg PO BID #240 tablet 08/30/18 Unknown Rx traZODone [Desyrel] 50 mg PO QHS PRN #30 tablet 08/30/18 Unknown Rx Active Meds: Active Medications Acetaminophen (Tylenol) 650 mg PO Q4HR PRN PRN Reason: Pain MILD(1-3)/Fever >100.5/HEBERT Al Hydrox/Mg Hydrox/Simethicone (Alum-Mag Hydrox-Simeth [phone]/5ml) 30 ml PO Q4HR PRN PRN Reason: Indigestion Divalproex Sodium (Depakote Er) 500 mg PO BID MARIO Last Admin: 12/31/18 22:12 Dose: 500 mg Documented by: Magnesium Hydroxide (Milk Of Magnesia) 30 ml PO Q12HR PRN PRN Reason: Constipation Risperidone (Risperdal) 4 mg PO BID MARIO Last Admin: 12/31/18 22:12 Dose: 4 mg Documented by: Ziprasidone (Geodon) 10 mg IM Q12H PRN PRN Reason: Agitation Past psychiatric history - Past Medical History Past Medical History: hypertension, other (Vision Impairment) Past Surgical History: Other (Unable to obtain) - past Psychiatric treatment and history psychiatric treatment history: Inpatient psy setting in the past. Denies a fam psy hx. - Social History Social history: other (Reside at a jail) Mental Status Exam - Vital signs Last Vital Signs Temp 97.9 F 01/01/19 01:22 Pulse 89 01/01/19 01:22 Resp 17 01/01/19 01:22 BP 113/90 01/01/19 01:22 Pulse Ox 99 01/01/19 01:22 - Exam Narrative exam: MSE: Appearance: cooperative Behavior: calm Speech: regular rate and tone Mood: "okay" Affect: congruent to mood Thought Process: somewhat disorganized Thought Content: denies SI/HI's and AVH's, delusional Motor Activity: ambulatory Cognition: A/O x3 Insight: poor Judgment: variable Results Result Diagrams: 12/31/18 15:58 12/31/18 15:58 Abnormal lab results 12/31/18 12/31/18 12/31/18 Range/Units 15:58 15:58 15:58 MCV 83 L (84-94) fl MCHC 35 H (32-34) % RDW 17.7 H (13.2-15.2) % [place] % (Auto) 8.6 H (0.0-7.3) % BUN 33 H (9-20) mg/dL Glucose 101 H (75-100) mg/dL Total Protein (6.3-8.2) g/dL TSH 4.400 H (0.270-4.200) mlU/mL 12/31/18 Range/Units 15:58 MCV (84-94) fl MCHC (32-34) % RDW (13.2-15.2) % [place] % (Auto) (0.0-7.3) % BUN (9-20) mg/dL Glucose (75-100) mg/dL Total Protein 8.3 H (6.3-8.2) g/dL TSH (0.270-4.200) mlU/mL All other labs normal. Assessment and Plan Assessment and plan: Impression: Unspecified Psychosis. Cannabis Use DO. Today the patient was calm, but somewhat disorganized during the assessment. DDx: Schizophrenia, Substance Induced Psychosis Recommendation/Plan: Continue 1013, Depakote 500 mg PO BID for mood and Risperdal 4 mg PO BID for mood/psychosis. Attempted to discuss possible metabolic side effects of Risperdal with the patient. Baseline/Lipid Panel ordered for the AM. Dispo: The patient was referred to inpatient psy services. Staffed with Dr Jolly Grove.
[2019-01-01] MEDS: RisperDAL PO SCH (11:00)
[2019-01-01 16:12] VITALS: BP 102/74
== END 2019-01-01 18:32 ==
LOC: ED 15:18 → EEVIPCON 15:18 → ED 01-01 18:32
DX: F25.0 Schizoaffective disorder, bipolar type (principal); F23 Brief psychotic disorder; I10 Essential (primary) hypertension; F20.9 Schizophrenia, unspecified
CPT/HCPCS: 36415; 80048; 80076; 80307; 81001; 82150; 82550; 82553; 83690; 84443; 85025; 96372; 99285; J2060; J3486; 80320; G0480